=== PATIENT | male | born 1945 | race Caucasian/White ===

== ENCOUNTER 2022-11-05 01:10 | Inpatient (IN) | payer MEDICARE ==
[2022-11-05 02:01] LABS: #Basophils 0.1 thou/uL (0.0-0.2); #Eosinphils 0.2 thou/uL (0.0-0.7); #Monocytes 1.4 thou/uL (0.11-0.59); #Neutrophils 10.3 thou/uL (1.40-6.50); %Basophils 0.6 % (0.0-1.0); %Eosinophils 1.3 % (0.0-10.0); %Lymphocytes 12.7 % (21.0-51.0); Hematocrit 36.8 % (42.0-52.0); Hemoglobin 12.2 g/dL (14.0-18.0); Mean Corpuscular HGB CONC 33.2 g/dL (32.0-36.0); Mean Corpuscular Hemoglobin 27.9 pg (27.0-31.0); Mean Platelet Volume 9.3 fL (7.4-10.4); Platelet Count 226 10x3/uL (130-400); RBC Distribution Width 14.5 % (11.5-14.5); Red Blood Cell (RBC) Count 4.38 mill/uL (4.70-6.10); White Blood Cell (WBC) Count 13.7 10x3/uL (4.8-10.8)
[2022-11-05 02:17] LABS: PTT 26.2 sec (22.9-36.1)
[2022-11-05] MEDS ORDERED: Morphine 4 MG/ML VIAL ONE (02:23)
[2022-11-05 02:24] LABS: ALT (SGPT) 14 U/L (8-55); AST (SGOT) 16 U/L (5-34); Albumin 3.9 g/dL (3.4-4.8); Alkaline Phosphatase 65 U/L (40-110); Anion Gap 12 mmol/L (10-20); BUN (Urea Nitrogen) 23 mg/dL (8.4-25.7); Bilirubin, Total 0.4 mg/dL (0.2-1.2); Calc. Creatinine Clearance 0 mL/min (70-130); Calcium 9.5 mg/dL (7.8-10.44); Carbon Dioxide 21 mmol/L (23-31); Chloride 107 mmol/L (98-107); Estimated GFR 68; Glucose 123 mg/dL (83-110); Potassium 4.2 mmol/L (3.5-5.1); Protein, Total 6.9 g/dL (5.8-8.1); Sodium 136 mmol/L (136-145)
[2022-11-05] MEDS ORDERED: Dextrose 5% in Water 1,000 ML IV PRN (06:27)
[2022-11-05] MEDS ORDERED: Dextrose 50% Abboject 50 ML SYRINGE SLOW IVP PRN (06:27)
[2022-11-05] MEDS ORDERED: Glucagon 1 MG/ML KIT IM PRN (06:27)
[2022-11-05] MEDS ORDERED: Sodium Chloride 0.9% 1,000 ML IV SCH (06:30)
[2022-11-05] MEDS ORDERED: hydrALAZINE 20 MG/ML VIAL SLOW IVP PRN (06:43)
[2022-11-05] MEDS ORDERED: Ondansetron PF 4 MG/2 ML Vial IVP PRN (06:43)
[2022-11-05] MEDS ORDERED: Morphine 2 MG/ML VIAL SLOW IVP PRN (06:43)
[2022-11-05] MEDS ORDERED: Ondansetron ODT 4 MG TAB PO PRN (06:43)
[2022-11-05] MEDS ORDERED: Acetaminophen/Codeine 30-300mg Tablet PO PRN (06:49)
[2022-11-05] MEDS ORDERED: Acetaminophen 325 MG TAB PO SCH (07:00)
[2022-11-05] MEDS ORDERED: Acetaminophen 325 MG TAB ONE (07:58)
[2022-11-05] MEDS ORDERED: CEFAZOLIN 2 GM in Sodium Chloride 0.9% 100 ML IVPB SCH (08:15)
[2022-11-05] MEDS ORDERED: Famotidine 20 MG TAB ONE (09:00)
[2022-11-05] MEDS ORDERED: Amlodipine 5 MG TAB ONE (09:00)
[2022-11-05] MEDS: Amlodipine 10 MG TAB PO SCH (09:06)
[2022-11-05] MEDS: Famotidine 20 MG TAB PO SCH ×2 (09:07→21:04)
[2022-11-05] MEDS: Tamsulosin HCl 0.4 MG CAP PO SCH (10:21)
[2022-11-05] MEDS ORDERED: Ondansetron PF 4 MG/2 ML Vial ONE (16:06)
[2022-11-05] MEDS ORDERED: Dexamethasone 20 MG/5 ML VIAL ONE (16:06)
[2022-11-05] MEDS ORDERED: Rocuronium Bromide 10 MG/ML (10ML VIAL) ONE (16:06)
[2022-11-05] MEDS ORDERED: PHENYLEPHRINE-NS 100 MCG/ML 10 ML SYRINGE ONE (16:06)
[2022-11-05] MEDS ORDERED: Ketorolac Tromethamine 30 MG/ML VIAL ONE (16:06)
[2022-11-05] MEDS ORDERED: PROPOFOL 200 MG/20 ML VIAL ONE (16:06)
[2022-11-05] MEDS ORDERED: Vasopressin 20 UNITS/ML VIAL ONE (16:16)
[2022-11-05] MEDS ORDERED: fentaNYL PF 100 MCG/2 ML SYRINGE ONE (16:16)
[2022-11-05] MEDS ORDERED: Norepinephrine 4 MG/4 ML VIAL ONE (16:16)
[2022-11-05] MEDS ORDERED: Sodium Chloride 0.9% 100 ML ONE (16:24)
[2022-11-05] MEDS ORDERED: CEFAZOLIN 2 GM VIAL ONE (16:24)
[2022-11-05] MEDS ORDERED: SUGAMMADEX SODIUM 200 MG/2 ML VIAL ONE (17:33)
[2022-11-05] MEDS ORDERED: Ondansetron HCl/PF 4 MG/2 ML Vial IVP PRN (18:05)
[2022-11-05] MEDS: Acetaminophen 325 MG TAB PO SCH ×3 (20:01→23:45)
[2022-11-05] MEDS: CEFAZOLIN 2 GM in Sodium Chloride 0.9% 100 ML IVPB SCH (23:42)
[2022-11-05] MEDS: Cyclobenzaprine 10 MG TAB PO PRN (23:46)
[2022-11-06] MEDS: Acetaminophen 325 MG TAB PO SCH ×4 (05:02→21:03)
[2022-11-06 05:40] LABS: #Monocytes 0.9 thou/uL (0.11-0.59); #Neutrophils 9.6 thou/uL (1.40-6.50); %Basophils 0.2 % (0.0-1.0); %Lymphocytes 7.4 % (21.0-51.0); %Monocytes 7.8 % (0.0-10.0); %Neutrophils 84.3 % (42.0-75.0); Hematocrit 34.7 % (42.0-52.0); Hemoglobin 11.2 g/dL (14.0-18.0); Mean Corpuscular HGB CONC 32.3 g/dL (32.0-36.0); Mean Corpuscular Hemoglobin 27.6 pg (27.0-31.0); Mean Corpuscular Volume 85.5 fl (78.0-98.0); Mean Platelet Volume 9.8 fL (7.4-10.4); Platelet Count 213 10x3/uL (130-400); RBC Distribution Width 14.7 % (11.5-14.5); Red Blood Cell (RBC) Count 4.06 mill/uL (4.70-6.10); White Blood Cell (WBC) Count 11.4 10x3/uL (4.8-10.8)
[2022-11-06 06:09] LABS: Anion Gap 12 mmol/L (10-20); BUN (Urea Nitrogen) 16 mg/dL (8.4-25.7); Calc. Creatinine Clearance 76 mL/min (70-130); Carbon Dioxide 21 mmol/L (23-31); Chloride 105 mmol/L (98-107); Estimated GFR 67; Glucose 167 mg/dL (83-110); Potassium 4.1 mmol/L (3.5-5.1); Sodium 134 mmol/L (136-145)
[2022-11-06] MEDS ORDERED: Dextrose 50% Abboject 50 ML SYRINGE IVP PRN (08:30)
[2022-11-06] MEDS ORDERED: Glucagon 1 MG/ML KIT IM PRN (08:30)
[2022-11-06] MEDS ORDERED: Dextrose 5% in Water 1,000 ML IV PRN (08:30)
[2022-11-06] MEDS ORDERED: HumaLOG 300 UNITS/3 ML VIAL SC PRN (08:30)
[2022-11-06] MEDS: Senokot S 8.6-50 MG TAB PO SCH ×2 (09:30→21:03)
[2022-11-06] MEDS: Tamsulosin HCl 0.4 MG CAP PO SCH (09:30)
[2022-11-06] MEDS: CEFAZOLIN 2 GM in Sodium Chloride 0.9% 100 ML IVPB SCH ×2 (09:31→17:04)
[2022-11-06] MEDS: Polyethylene Glycol 3350 17 GM Packet PO SCH (09:37)
[2022-11-06] MEDS: Amlodipine 10 MG TAB PO SCH (09:38)
[2022-11-07] MEDS: Acetaminophen 325 MG TAB PO SCH ×3 (05:08→18:12)
[2022-11-07] MEDS: Carvedilol 6.25 MG TAB PO SCH ×2 (08:59→18:11)
[2022-11-07] MEDS: Cyclobenzaprine 10 MG TAB PO PRN (09:05)
[2022-11-07] MEDS: Amlodipine 10 MG TAB PO SCH (09:05)
[2022-11-07] MEDS: Senokot S 8.6-50 MG TAB PO SCH ×2 (09:05→21:07)
[2022-11-07] MEDS: Polyethylene Glycol 3350 17 GM Packet PO SCH (09:05)
[2022-11-07] MEDS: Tamsulosin HCl 0.4 MG CAP PO SCH (09:05)
[2022-11-08] MEDS: Acetaminophen 325 MG TAB PO SCH ×5 (00:02→23:39)
[2022-11-08] MEDS: Tamsulosin HCl 0.4 MG CAP PO SCH (09:35)
[2022-11-08] MEDS: Amlodipine 10 MG TAB PO SCH (09:35)
[2022-11-08] MEDS: Polyethylene Glycol 3350 17 GM Packet PO SCH (09:35)
[2022-11-08] MEDS: Senokot S 8.6-50 MG TAB PO SCH ×2 (09:35→20:07)
[2022-11-08] MEDS: Carvedilol 6.25 MG TAB PO SCH ×2 (09:36→18:00)
[2022-11-09] MEDS: Acetaminophen 325 MG TAB PO SCH ×4 (06:39→23:46)
[2022-11-09] MEDS: Tamsulosin HCl 0.4 MG CAP PO SCH (08:26)
[2022-11-09] MEDS: Senokot S 8.6-50 MG TAB PO SCH ×2 (08:26→19:58)
[2022-11-09] MEDS: Amlodipine 10 MG TAB PO SCH (08:26)
[2022-11-09] MEDS: Polyethylene Glycol 3350 17 GM Packet PO SCH (08:26)
[2022-11-09] MEDS: Carvedilol 6.25 MG TAB PO SCH ×2 (08:26→16:39)
[2022-11-10] MEDS: Acetaminophen 325 MG TAB PO SCH ×2 (05:33→14:14)
[2022-11-10] MEDS: Tamsulosin HCl 0.4 MG CAP PO SCH (08:45)
[2022-11-10] MEDS: Carvedilol 6.25 MG TAB PO SCH (08:46)
[2022-11-10] MEDS: Senokot S 8.6-50 MG TAB PO SCH (08:46)
[2022-11-10] MEDS: Amlodipine 10 MG TAB PO SCH (08:46)
[2022-11-10] MEDS: Polyethylene Glycol 3350 17 GM Packet PO SCH (08:55)
[2022-11-10 13:19] VITALS: BMI 33.4
[2022-11-10 19:56] VITALS: BP 132/72; TEMP 98.1
== END 2022-11-10 15:00 | disposition swing bed (61) | DRG 522 ==
LOC: ERS 01:10 → ERHOLD 03:23 → OBSVTOIN 06:27 → SURG A 13:45 → SURG B 19:39
PROVIDERS: ADMIT Surgery; ATTEND Surgery
PROC: 0SRR03Z Replacement of Right Hip Joint, Femoral Surface with Ceramic Synthetic Substitute, Open Approach (ICD-10-PCS; principal; 2022-11-05)
DX: S72.011A Unspecified intracapsular fracture of right femur, initial encounter for closed fracture (principal); W18.30XA Fall on same level, unspecified, initial encounter; I10 Essential (primary) hypertension; Z79.899 Other long term (current) drug therapy; I25.10 Atherosclerotic heart disease of native coronary artery without angina pectoris; Z95.5 Presence of coronary angioplasty implant and graft; Z79.84 Long term (current) use of oral hypoglycemic drugs
CPT/HCPCS: 36415; 71045; 72170; 80048; 80053; 85025; 85610; 85730; 93005; 96374; C1713; C1776; J1100; J1650; J1885; J2270; J2405; J2704; J3490; J7050